=== PATIENT | female | born 1975 | race Caucasian/White ===

== ENCOUNTER 2021-05-23 07:43 | Day surgery (SDC) | payer OTHER ==
[2021-05-23] MEDS ORDERED: Sodium Chloride 0.9% 1000 ML 1,000 ML ONE (07:44)
[2021-05-23] MEDS ORDERED: Lactated Ringers 1,000 ML IV SCH (08:00)
[2021-05-23] MEDS ORDERED: CEFAZOLIN 2 GM-D5W BAG** 2 GM/50 ML ML IV SCH (08:00)
[2021-05-23] MEDS ORDERED: Lactated Ringers 1,000 ML IV ONE (08:06)
[2021-05-23] MEDS ORDERED: CEFAZOLIN 2 GM-D5W BAG** 2 GM/50 ML ML IV ONE (08:06)
[2021-05-23] MEDS ORDERED: TORAdol 30 mg Injection ONE (10:59)
[2021-05-23] MEDS ORDERED: Decadron 4 MG INJ ONE ×2 (11:00)
[2021-05-23] MEDS ORDERED: Zofran 4 MG/2 ML VIAL ONE (11:00)
[2021-05-23] MEDS ORDERED: DIPRIVAN 200 MG/20 ML IV ONE (11:00)
[2021-05-23] MEDS ORDERED: SUBLIMAZE 100 MCG/2 ML ONE ×2 (11:01→12:10)
[2021-05-23] MEDS ORDERED: Versed 2 MG/2 ML Injection ONE (11:01)
[2021-05-23] MEDS ORDERED: ASTRINGYN 8 GM TP ONE (11:46)
[2021-05-23] MEDS ORDERED: Hydromorphone 1 mg/ml Injection ONE (12:10)
[2021-05-23 13:29] VITALS: BP 144/78; PULSE 61; O2SAT 97
--- NOTE | 2021-05-24 08:50 | OP ---
SURGERY DATE/TIME: 05/23/2021 1105 PREOPERATIVE DIAGNOSIS: Cervical polyp. POSTOPERATIVE DIAGNOSIS: Cervical polyp. PROCEDURE: Hysteroscopy with removal of cervical polyp. SURGEON: Willam Diaz D.O. CHILD SUPPORT AGENT: Mirna Betts manager surgical. ANESTHESIA: General. ESTIMATED BLOOD LOSS: Approximately 50 cc. COMPLICATIONS: None. INDICATIONS: The risks, benefits, indications and alternatives of the procedure were reviewed with the patient prior to the procedure. The patient understood the risk of infection, bleeding, bowel injury, bladder injury, ureteral injury, uterine perforation, pelvic infection associated with the surgery and desires to have this surgery as a possible means to alleviate her current medical condition. DESCRIPTION OF PROCEDURE AND FINDINGS: At this point the patient is taken to the operating room, given general sedation, placed in dorsal lithotomy position, prepped and draped in the usual sterile fashion. A weighted speculum is then placed in the patient's vagina and at this point it appeared that the cervix had a cervical polyp which extended from the distal end of the cervix to the vaginal introitus. The cervical polyp was grasped with ring forceps and was twisted in a clockwise motion where the distal tissue was removed after separation from its stalk. After removal an additional polyp forceps was used that was entered through the endocervical canal where it was grasped and twisted in clockwise motion removing the remaining cervical polyp using the Metzenbaum scissors. The hysteroscope was used and placed through the endocervical region where visualization of the endometrial lining appeared to be within normal limits where no gross abnormalities were noted and no endometrial polyps were noted within the cavity. From this point the instruments removed. There was some bleeding noted from the cervical canal where the loop technician support engineer ball was used to coagulate the cervix where the polyp had been located. Hemostasis at this point was obtained as well as placing Monsel solution to the surface. After removal of the tenaculum there was bleeding noted at approximately 1:00 region the site of the tenaculum where 1-0 Vicryl suture was used and hemostasis was obtained after suturing. From this point all instruments were removed from the patient's vaginal region. The patient was then taken out of dorsal lithotomy position, was taken out of anesthesia and was then taken to the recovery room in stable condition. All instruments and laps were accounted for x2.
== END 2021-05-23 13:35 | disposition home or self-care (01) ==
LOC: SDC 07:43
PROVIDERS: ATTEND Obstetrics & Gynecology
DX: N84.1 Polyp of cervix uteri (principal)
CPT/HCPCS: 58558; 84703; 88305; J0690; J1100; J1170; J1885; J2250; J2405; J2704; J3010; A9270-GY